=== PATIENT | male | born 1945 | race Caucasian/White ===

== ENCOUNTER 2022-08-07 12:09 | Outpatient (CLI) | payer MEDICARE, SELFPAY ==
--- NOTE | 2022-08-07 12:49 | ECG_ITS ---
Measurements Intervals [place] Rate: 72 P: 38 GA: 168 QRS: -58 QRSD: 92 T: 26 QT: 373 QTc: 410 Interpretive Statements SINUS RHYTHM LEFT ANTERIOR FASCICULAR BLOCK BASELINE ARTIFACT- I, II, III, AVR, AVL, AVF, V3, V5-V6 ABNORMAL ECG NO PREVIOUS ECG AVAILABLE FOR COMPARISON Electronically Signed On 08-07-2022 13:18:48 SOFT TOP INSTALLER by Cliff Hamilton D.O.
== END 2022-08-07 12:10 | disposition home or self-care (01) ==
LOC: ANHSURGERY 12:42
PROVIDERS: Visit Provider Otolaryngology
DX: I10 Essential (primary) hypertension (principal); I44.4 Left anterior fascicular block
CPT/HCPCS: 93005

== ENCOUNTER 2022-08-08 01:20 | Day surgery (SDC) | payer MEDICARE, SELFPAY ==
[2022-08-06 12:42] VITALS: BMI 25.1
--- NOTE | 2022-08-06 13:05 | PC.NURSE ---
Report to the Outpatient Waiting Room, entrance under the green pavilion located off [facility], at time __6:00AM on date __08/08/22 . Planned Procedure Time: __8:00AM . Time changes happen often and if your time is changed the preop area will call you the afternoon before. - You and your visitor will be asked to self-screen and do not enter if you have any COVID symptoms. - Only one visitor is requested with a max of two and NO children visitors are allowed at this time. - The patient visitor may be requested to leave or wait in car when not with patient due to distancing restrictions. - A mask is optional within the hospital at this time. Patients may have clear liquids (water, carbonated beverages, clear teas, apple juice) until 3 hours prior to surgery with a maximum of 20 ounces. - No food from midnight until time of surgery Take the following medications with a SIP of water the morning of surgery: ____NONE DO NOT STOP ANY OF YOUR OTHER PRESCRIPTION MEDICATIONS PRIOR TO SURGERY ?EXCEPT THE FOLLOWING Medications to discontinue per physician ___HOLD ALL VITAMINS/SUPPLEMENTS STARTING NOW (08/06/22) Please no make-up, nail serbian, hairspray, perfume, deodorant, or body powder the day of surgery. No jewelry (including any body piercings) or valuables the day of surgery, leave them at home. Please take a shower or bath the night before, or the morning of, surgery with an antibacterial soap. Wear comfortable, loose fitting clothing. Children are encouraged to wear pajamas. - Jewelry must be removed prior to entering the operating room. Rings and piercings that are not removed may be cut off. - The hospital will not accept responsibility for valuables. - Please leave all valuables, including medications, at home the day of surgery. If you are going home after surgery, a licensed mixer driver must drive you home. - NO public transportation without another adult if you receive anesthesia. - We recommend that an adult stay with you for 24 hours following discharge. - We also recommend that you do not drive, make important decision, drink alcoholic beverages, or take any drugs that were not prescribed by your health care provider for at least 24 hours after your discharge time. Follow any additional instructions given to you from your surgeon. If you or anyone in your household have experienced Covid symptoms in the past week, please notify your surgeon or the nurse liaison at the phone number below for possible testing. Telephone instructions given to _PATIENT___and asked if any additional questions and then verbalized understanding. Patient advised to call surgeon office or pre surgery nurse liaison [phone] if any additional questions.
--- NOTE | 2022-08-07 17:05 | PM.IMHP ---
H&P: HPI History of Present Illness Date/Time: 08/07/22 17:05 Chief Complaint: bilateral eustachian tube dysfunction bilateral retained myringotomy tubes Narrative: planned surgical procedure Review of Systems Review of Systems: All systems reviewed & are unremarkable except as noted in HPI and below PMFSH Family History Family History Father Hypertension Mother Asthma Hypertension Sibling Hypertension Cancer Social History Social History Smoking status: Never smoker Alcohol intake: never Substance use: never Substance use type: does not use Lack of Transportation: No Lack of Food: Never True Current Housing: I Have Housing Concerned About Future Housing: No Difficulty Paying Gas/Electric Bills: No Difficulty Paying for Meds: No Currently Unemployed: No Education: Associate Degree Difficulty w/ Childcare or Family Care: No Living arrangements: alone Spiritual care concerns: No Meds Home Medications and Allergies Home Medications Medication Instructions Recorded Confirmed Type losartan 50 mg tablet 50 mg PO QAM 05/29/21 08/06/22 History simvastatin 20 mg tablet 20 mg PO DAILY 05/29/21 08/06/22 History terazosin 5 mg capsule 5 mg PO DAILY 05/29/21 08/06/22 History cetirizine 10 mg capsule (Zyrtec) 10 mg PO DAILY PRN Congestion 11/25/21 08/06/22 History cholecalciferol (vitamin D3) 10 10 mcg PO DAILY 11/25/21 08/06/22 History mcg (400 unit) capsule fish oil-dha-epa 1,200 mg-144 1 cap PO DAILY 11/25/21 08/06/22 History mg-216 mg capsule folic acid 1 mg tablet 1 mg PO DAILY 11/25/21 08/06/22 History lutein 20 mg capsule 20 mg PO DAILY 11/25/21 08/06/22 History magnesium hydroxide 400 mg (170 mg 400 mg PO DAILY 11/25/21 08/06/22 History magnesium) chewable tablet zinc 50 mg tablet 50 mg PO DAILY 11/25/21 08/06/22 History coenzyme Q10 100 mg capsule 100 mg PO DAILY 08/06/22 08/06/22 History (CoQ-10) glucosamine 500 wt-qgbadntowi-dkq6 1 tablet PO DAILY 08/06/22 08/06/22 History 416.6 mg-C 20 mg-delores 0.6 mg tablet methotrexate sodium 2.5 mg tablet 10 mg PO WE 08/06/22 08/06/22 History ntzcfsha-hkul-tswlb acid 400 1 tablet PO DAILY 08/06/22 08/06/22 History mcg-lycopene 600 mcg-ginkgo 120 mg tablet tumeric 100 mg-zack 150 mg-olive 1 cap PO DAILY 08/06/22 08/06/22 History 50 mg-oreg 150 mg-caprylate capsule Allergies Allergy/AdvReac Type Severity Reaction Status Date / Time Penicillins Allergy rash Verified 08/06/22 12:34 Sulfa (Sulfonamide Allergy rash Verified 08/06/22 12:34 Antibiotics) Exam Narrative: retained tubes bilaterally Assessment and Plan Assessment and plan (1) Retained bilateral myringotomy tubes: Code(s): Z96.22 - Myringotomy tube(s) status Status: Acute Assessment and Plan: plan OR bilateral nasal endoscopy with bilateral eustachian tube balloon dilation bilateral T-tube removal and replacement. Risks were discussed including bleeding infection damage to surrounding structures failure to balloon if anatomic obstruction possible carotid injury and stroke patient voiced understanding and agreed. (2) Dysfunction of both eustachian tubes: Code(s): H69.83 - Other specified disorders of Eustachian tube, bilateral Status: Acute
[2022-08-08] VITALS (7 sets, daily range): BP systolic 135–160; BP diastolic 61–89; PULSE 76–92; RESP 12–18; TEMP 36.1–36.3; O2SAT 95–100
[2022-08-08] MEDS: LACTATED RINGERS 1,000 ML 30 ML IV CONT ×2 (06:22→08:51)
--- NOTE | 2022-08-08 07:18 | WPDHPUPDATE1 ---
History and Physical Update Update Date/Time: 08/08/22 07:18 History and Physical has been reviewed, including an updated exam of the patient. There are NO changes in the patient's condition. Risks, benefits, and alternatives have been discussed and questions answered. Patient agrees to proceed with procedure.
--- NOTE | 2022-08-08 07:43 | WPDANESEPPF ---
Anes - Initial Pre Proc Eval Procedure: Operation Date: 08/08/22 08:15 Proposed Procedures p Nasal Endoscopy - Bob Peters MD s Bilateral Myringotomy Ear Tube Removal with Bilateral Myringotomy Tube Replacement, - Bob Peters MD s Bilateral Eustachian Tube Balloon Dilation - Bob Peters MD Date/Time: 08/08/22 07:43 Surgeon: Bob Peters MD Pre Op Diagnosis: Mack Eustachian Tube Dysfunction Patient Data Age: 76 Gender: M Height: 1.83 m Weight: 83 kg Last Vital Signs Temp 36.1 C L 08/08/22 06:07 Pulse 77 08/08/22 06:07 Resp 18 08/08/22 06:07 BP 157/68 H 08/08/22 06:07 Pulse Ox 97 08/08/22 06:07 O2 Del Method Room Air 08/08/22 06:07 Allergies Allergy/AdvReac Type Severity Reaction Status Date / Time Penicillins Allergy rash Verified 08/08/22 06:16 Sulfa (Sulfonamide Allergy rash Verified 08/08/22 06:16 Antibiotics) Home Medications Medication Instructions Recorded Confirmed Type losartan 50 mg tablet 50 mg PO QAM 05/29/21 08/08/22 History simvastatin 20 mg tablet 20 mg PO DAILY 05/29/21 08/08/22 History terazosin 5 mg capsule 5 mg PO DAILY 05/29/21 08/08/22 History cetirizine 10 mg capsule (Zyrtec) 10 mg PO DAILY PRN Congestion 11/25/21 08/08/22 History cholecalciferol (vitamin D3) 10 10 mcg PO DAILY 11/25/21 08/08/22 History mcg (400 unit) capsule fish oil-dha-epa 1,200 mg-144 1 cap PO DAILY 11/25/21 08/08/22 History mg-216 mg capsule folic acid 1 mg tablet 1 mg PO DAILY 11/25/21 08/08/22 History lutein 20 mg capsule 20 mg PO DAILY 11/25/21 08/08/22 History magnesium hydroxide 400 mg (170 mg 400 mg PO DAILY 11/25/21 08/08/22 History magnesium) chewable tablet zinc 50 mg tablet 50 mg PO DAILY 11/25/21 08/08/22 History coenzyme Q10 100 mg capsule 100 mg PO DAILY 08/06/22 08/08/22 History (CoQ-10) glucosamine 500 ot-bcsvnwxnmd-bbj2 1 tablet PO DAILY 08/06/22 08/08/22 History 416.6 mg-C 20 mg-delores 0.6 mg tablet methotrexate sodium 2.5 mg tablet 10 mg PO WE 08/06/22 08/08/22 History enpomsjy-qcjp-zxtna acid 400 1 tablet PO DAILY 08/06/22 08/08/22 History mcg-lycopene 600 mcg-ginkgo 120 mg tablet tumeric 100 mg-zack 150 mg-olive 1 cap PO DAILY 08/06/22 08/08/22 History 50 mg-oreg 150 mg-caprylate capsule Patient hx anesthesia problems: none Family hx anesthesia problems: none Results Review: All pre-operative results and documents have been reviewed as part of the pre-operative evaluation. [facility] Family History Family History Father Hypertension Mother Asthma Hypertension Sibling Hypertension Cancer Social History Social History Smoking status: Never smoker Alcohol intake: never Substance use: never Substance use type: does not use Lack of Transportation: No Lack of Food: Never True Current Housing: I Have Housing Concerned About Future Housing: No Difficulty Paying Gas/Electric Bills: No Difficulty Paying for Meds: No Currently Unemployed: No Education: Associate Degree Difficulty w/ Childcare or Family Care: No Living arrangements: alone Spiritual care concerns: No Anes - Eval Final PreProcedure Day of Procedure 08/08/22 07:43 Patient weight: normal Heart: regular rate and rhythm Lungs: clear to auscultation Airway: Mallampati scale class II Neurological: alert and oriented Last oral intake: >/= 8 hours ASA classification: III Emergent: no Anesthetic plan: proceed Anesthesia type and monitoring: general LMA and standard monitoring Results Review: All pre-operative results and documents have been reviewed as part of the pre-operative evaluation. Informed Consent: The patient's anesthetic plan and its attendant risks and benefits were discussed with the patient/family/POA. Questions were solicited and answers provided to the satisfaction of the patient/family/POA.
[2022-08-08] MEDS: CIPROFLOXACIN HCL 0.3% OP SOLN 2.5 ML BTL 4 DROP EACH EAR (08:24)
[2022-08-08] MEDS: OXYMETAZOLINE HCL 0.05% NAS 15 ML BTL (*BKC) 1 SPRAY NASAL (08:26)
--- NOTE | 2022-08-08 09:13 | P.OP_ITS ---
Procedure Note - Detailed Date of Procedure 08/08/22 Pre-op Diagnosis Mack Eustachian Tube Dysfunction, right-sided otitis media, returning myringotomy tubes retained Post-op Diagnosis Same Procedure Performed bilateral tube replacement with T tubes and nasal endoscopy with bilateral eustachian tube dysfunction Surgeon Bob Peters MD Anesthesia General Indications see above Findings right-sided tube obstructed fluid left-sided tube in place no good replacement of tubes right-sided was slightly traumatic scant bleeding. Adequate Kennedy perfect dilation with eustachian tube balloons. Description of Procedure Patient identified consent verified. Patient brought operating. Time-out performed. General anesthesia induced endotracheal tube secured airway taped left lower lip. Patient prepped reposition 2nd time-out performed. Ankit microscope brought into the operative field. Right-sided view tube removed pros and was obstructive myringotomy made T-Tube placed 1 cc of bleeding drops placed cotton ball left-sided tube was in place removed frozen T-Tube placed through the hole. Drops placed cotton ball placed. 0 degree micro endoscope utilized turbinates a gently pushed to the side Afrin-soaked pledgets placed allowed to sit for 5 minutes then removed torus to bear I easily visualized bilaterally. Eustachian tube balloon dilation device Acclarent placed into the geovani/eustachian tube inflated for 2 minutes at 12 atmospheres on each side was a bilateral procedure. Patient tolerated the procedure well no obvious complications blood loss maybe 1 cc care the patient given Anesthesiology I pe rformed all dictated portions of the procedure. Estimated Blood Loss 1 Drains No Packing No Pathology None sent Complications No immediate complications Condition Stable Disposition PACU [facility] Billing Surgery - Charge Forward: Surgery Billing
== END 2022-08-08 10:23 | disposition home or self-care (01) ==
PROVIDERS: Visit Provider Otolaryngology
PROC: (CPT 69424; 2022-08-08 08:15)
PROC: (CPT 69706; 2022-08-08 08:15)
DX: H69.83 Other specified disorders of Eustachian tube, bilateral (principal); H66.91 Otitis media, unspecified, right ear; T85.698A Other mechanical complication of other specified internal prosthetic devices, implants and grafts, initial encounter; Y83.8 Other surgical procedures as the cause of abnormal reaction of the patient, or of later complication, without mention of misadventure at the time of the procedure
CPT/HCPCS: 69706; 69436; C1726; J1100; J2405; J2704; J2710; J3010; J7120

== ENCOUNTER 2023-01-07 08:51 | Outpatient (CLI) | payer MEDICARE, SELFPAY ==
--- NOTE | 2023-01-19 20:48 | WPDHOMESLEEP ---
Sleep Study - Home Unattended Date of Study: 01/07/23 Ordering Provider: Johanny Smith DO Interpreting Provider: Johanny Smith DO Home Sleep Study Type: Watch PAT Height: 1.83 m Weight: 83.915 kg Body Mass Index: 25.0 Neck Circumference (inches): 15.5 [place]: 2 Reason for Sleep Study Witnessed apneas and multiple nighttime awakenings Sleep History The patient is a 77-year-old male that had a sleep study ordered for evaluation of sleep apnea. The patient denies awakening from sleep short of breath. He denies awakening at night with heartburn, belching or cough. He occasionally snores but it is never loud enough that others complain. He denies having trouble sleeping when he has a cold. He denies waking up gasping for air throughout the night. He occasionally has breathing problems at night observed by himself or others. He denies sweating excessively at night. He denies having heart palpitations or irregular heartbeats during the night. He rarely falls asleep during the day but never while driving. He denies sleep paralysis, cataplexy and hypnagogic / hypnopompic hallucinations. He denies having trouble at school or work due to sleepiness. He denies feeling afraid of going to sleep. He denies having nightmares. He rarely remembers his dreams. He denies having thoughts racing through his mind. He denies feeling sad, depressed and anxious. He denies having muscular tension. He denies noticing parts of his body jerk. He denies kicking during the night. He rarely has crawling and aching feelings in his legs and rarely has leg pain during the night. He rarely grinds his teeth during sleep never awakens with morning jaw pain. He denies being bothered by pain during the day and denies being awakened by pain during the night. He denies waking feeling stiff morning. He denies waking up with sore or achy muscles. He frequently wakes up with pain in the neck, spine or other joints. He goes to bed at 1:30 a.m. on both weekdays and weekends. It takes him 5-10 minutes to fall asleep. He wakes up 3-4 times throughout the night for unknown reasons but he can fall back asleep within 5 minutes. He wakes up between 9-930 a.m. on both weekdays and weekends. He typically gets 7 8 hours of sleep per night. He will stay in bed for 5 minutes after waking up in the morning. He currently lives alone. He does not consume any caffeinated beverages within 2 hours of bedtime. He does not engage in physical exercise before bedtime. He will read and watch television before falling asleep. He denies taking naps in the afternoon or the evening. He drinks 1 cup of cappuccino daily. He denies tobacco, and recreational drug use [facility] Past Medical History Medical History Acute carpal tunnel syndrome Family History Family History Father Hypertension Mother Asthma Hypertension Sibling Hypertension Cancer Social History Social History Smoking status: Never smoker Alcohol intake: never Substance use: never Substance use type: does not use Lack of Transportation: No Lack of Food: Never True Current Housing: I Have Housing Concerned About Future Housing: No Difficulty Paying Gas/Electric Bills: No Difficulty Paying for Meds: No Currently Unemployed: No Education: Associate Degree Difficulty w/ Childcare or Family Care: No Living arrangements: alone Spiritual care concerns: No Medications Home Medications Medication Instructions Recorded Confirmed Type losartan 50 mg tablet 50 mg PO QAM 05/29/21 12/02/22 History simvastatin 20 mg tablet 20 mg PO DAILY 05/29/21 12/02/22 History terazosin 5 mg capsule 5 mg PO DAILY 05/29/21 12/02/22 History cetirizine 10 mg capsule (Zyrtec) 10 mg PO DAILY PRN Congestion 11/25/21 06
[2023-01-19 21:02] VITALS: BMI 25.0
== END 2023-01-13 15:31 | disposition home or self-care (01) ==
PROVIDERS: Visit Provider Family Medicine
DX: G47.9 Sleep disorder, unspecified (principal); G47.33 Obstructive sleep apnea (adult) (pediatric)
CPT/HCPCS: 95800

== ENCOUNTER 2023-03-10 08:21 | Outpatient (CLI) | payer MEDICARE, SELFPAY ==
--- NOTE | 2023-03-31 16:50 | WPDSLEEPSTUD ---
Sleep Study Date of Study: 03/10/23 Ordering Provider: Johanny Smith DO Interpreting Physician: Johanny Smith DO Sleep Study Type: CPAP Titration Height: 1.83 m Weight: 82.554 kg Body Mass Index: 24.7 Neck Circumference (inches): 15 [place]: 2 Reason for Sleep Study The patient had a WatchPAT home sleep test on 01/07/2023 that showed an overall AHI of 13.8 with desaturation down to 84%. He had a central apnea index of 5.6. He was recommended to have a PAP Titration study. Sleep History The patient is a 77-year-old male that had a sleep study ordered for evaluation of sleep apnea.? The patient denies awakening from sleep short of breath.? He denies awakening at night with heartburn, belching or cough.? He occasionally snores but it is never loud enough that others complain.? He denies having trouble sleeping when he has a cold.? He denies waking up gasping for air throughout the night.? He occasionally has breathing problems at night observed by himself or others.? He denies sweating excessively at night.? He denies having heart palpitations or irregular heartbeats during the night.? He rarely falls asleep during the day but never while driving.? He denies sleep paralysis, cataplexy and hypnagogic / hypnopompic hallucinations.? He denies having trouble at school or work due to sleepiness.? He denies feeling afraid of going to sleep.? He denies having nightmares.? He rarely remembers his dreams.? He denies having thoughts racing through his mind.? He denies feeling sad, depressed and anxious.? He denies having muscular tension.? He denies noticing parts of his body jerk.? He denies kicking during the night.? He rarely has crawling and aching feelings in his legs and rarely has leg pain during the night.? He rarely grinds his teeth during sleep never awakens with morning jaw pain.? He denies being bothered by pain during the day and denies being awakened by pain during the night.? He denies waking feeling stiff morning.? He denies waking up with sore or achy muscles.? He frequently wakes up with pain in the neck, spine or other joints.? He goes to bed at 1:30 a.m. on both weekdays and weekends.? It takes him 5-10 minutes to fall asleep.? He wakes up 3-4 times throughout the night for unknown reasons but he can fall back asleep within 5 minutes.? He wakes up between 9-930 a.m. on both weekdays and weekends.? He typically gets 7 8 hours of sleep per night.? He will stay in bed for 5 minutes after waking up in the morning.? He currently lives alone.? He does not consume any caffeinated beverages within 2 hours of bedtime.? He does not engage in physical exercise before bedtime.? He will read and watch television before falling asleep.? He denies taking naps in the afternoon or the evening.? He drinks 1 cup of cappuccino daily.? He denies tobacco, and recreational drug use. [facility] Past Medical History Medical History Acute carpal tunnel syndrome Family History Family History Father Hypertension Mother Asthma Hypertension Sibling Hypertension Cancer Social History Social History Smoking status: Never smoker Alcohol intake: never Substance use: never Substance use type: does not use Lack of Transportation: No Lack of Food: Never True Current Housing: I Have Housing Concerned About Future Housing: No Difficulty Paying Gas/Electric Bills: No Difficulty Paying for Meds: No Currently Unemployed: No Education: Associate Degree Difficulty w/ Childcare or Family Care: No Living arrangements: alone Spiritual care concerns: No Medications Home Medications Medication Instructions Recorded Confirmed Type losartan 50 mg tablet 50 mg PO QAM 05/29/21 12/02/22 History simvastatin 20 mg tablet 20 mg PO DAILY 05/29/21 12/02/22 History
[2023-03-31 16:58] VITALS: BMI 24.7
== END 2023-03-11 06:51 | disposition home or self-care (01) ==
LOC: ANHCSM 08:22
PROVIDERS: Visit Provider Family Medicine
DX: G47.33 Obstructive sleep apnea (adult) (pediatric) (principal); G47.61 Periodic limb movement disorder
CPT/HCPCS: 95811

== ENCOUNTER 2024-06-02 13:37 | Outpatient (CLI) | payer MEDICARE, SELFPAY ==
--- NOTE | ~2024-06-02 | XR_ITS ---
XR foot RT 2V Ordering provider: Trevor Banks MD History: . Rheumatoid arthritis . Comparison: None. FINDINGS: BONES: No acute fracture or dislocation. Calcaneus spur. JOINT SPACES: Normal. No tarsal coalition. SOFT TISSUES: Normal. IMPRESSION: No acute osseous abnormality of the right foot. Reviewed, dictated and finalized at location A. LIFT MULE OPERATOR
--- NOTE | ~2024-06-02 | XR_ITS ---
XR foot LT 2V Ordering provider: Trevor Banks MD History: . Rheumatoid arthritis . Comparison: none FINDINGS: BONES: No acute fracture or dislocation. Small bony fragment seen in the lateral view in the soft tissues most likely sesamoid bones. JOINT SPACES: Normal. No tarsal coalition. SOFT TISSUES: Normal. IMPRESSION: No acute osseous abnormality left foot. Reviewed, dictated and finalized at location A. ER ELECTRICAL
--- NOTE | ~2024-06-02 | XR_ITS ---
XR hand RT 2V Ordering provider: Trevor Banks MD History: . RHEUMATOID ARTHIRITS . Comparison: None. FINDINGS: BONES: No acute fracture or dislocation. JOINT SPACES: Mild periarticular osteopenia is noted with subarticular margin erosive changes which r aises the possibility of rheumatoid arthritis. Clinical correlation advised. Narrowing of the proxima l and distal interphalangeal joints is noted. SOFT TISSUES: Normal. IMPRESSION: No acute osseous abnormality right hand. Highly suggestive rheumatoid arthritis. Clinical correlation advised Reviewed, dictated and finalized at location A. L DIE ENGRAVER
--- NOTE | ~2024-06-02 | XR_ITS ---
XR hand LT 2V Ordering provider: Trevor Banks MD History: . Rheumatoid arthritis . Comparison: None. FINDINGS: BONES: No acute fracture or dislocation. JOINT SPACES: Narrowing of the proximal and distal interphalangeal joints. Mild periarticular osteope pam. Subarticular erosive changes are seen. SOFT TISSUES: Unremarkable. IMPRESSION: No acute osseous abnormality left hand. Possible rheumatoid arthritis. Other differential include erosive osteoarthritic changes. Reviewed, dictated and finalized at location A. CAL EFFECTS LINE UP PERSON IMPRESSION: No acute osseous abnormality left hand. Possible rheumatoid arthritis. Other differential include erosive osteoarthriti c changes.
== END 2024-06-02 13:38 | disposition home or self-care (01) ==
PROVIDERS: Visit Provider Internal Medicine
DX: M06.9 Rheumatoid arthritis, unspecified (principal)
CPT/HCPCS: 73120; 73620

== ENCOUNTER 2024-07-18 14:33 | Outpatient (CLI) | payer MEDICARE, SELFPAY ==
--- NOTE | ~2024-07-18 | MR_ITS ---
EXAMINATION: MR hand LT wo con, MR hand RT wo con DATE: 07/18/2024 15:39 INDICATION: Rheumatoid arthritis TECHNIQUE: 1. Magnetic resonance imaging (MRI) of the right hand was performed without intravenous contrast to i nclude the digits and distal aspect of the second-fifth metacarpals. Sequences included sagittal, cor onal, and axial T1-weighted FSE and T2-weighted FS FSE. 2. MRI of the left hand was performed without intravenous contrast to include the digits and distal a spect of the second-fifth metacarpals. Sequences included sagittal, coronal, and axial T1-weighted FS E and T2-weighted FS FSE. COMPARISON: Radiographs dated 05/2624 FINDINGS: Right hand: Bone alignment is normal. There is a low signal intensity sclerotic bone island at the head of the ri ght third metacarpal. Bone marrow signal is otherwise normal throughout with no reactive edema, fract ure or pathologic marrow replacing process. Polyarticular osteoarthritis characterized by nonuniform joint space narrowing and/or marginal osteophytes, mild at the third and fourth metacarpophalangeal j oints and second proximal interphalangeal joint, moderate severity at the remaining interphalangeal j oints and minimal at the second and fifth metacarpophalangeal joints. No cortical erosions to suggest inflammatory arthritis. No joint effusion, synovitis or tenosynovitis. Visualized portions of the fl exor and extensor tendons are normal. The collateral ligament complex at the metacarpophalangeal and interphalangeal joints are normal. Visualized portions of the intrinsic musculature of the hand are u nremarkable. Left hand: Bone alignment is normal. Bone marrow signal is otherwise normal throughout with no reactive edema, f racture or pathologic marrow replacing process. Polyarticular osteoarthritis at multiple interphalan geal joints. Moderate severity at the third and fifth distal interphalangeal and second-fifth proxima l interphalangeal joints and at the first interphalangeal joint. Additional mild osteoarthritis at th e third and fourth metacarpophalangeal and at the remaining interphalangeal joints. No cortical erosi ons to suggest inflammatory arthritis. No joint effusion, synovitis or tenosynovitis. Visualized port ions of the flexor and extensor tendons are normal. The collateral ligament complex at the metacarpop halangeal and interphalangeal joints are normal. Visualized portions of the intrinsic musculature of the hand are unremarkable. IMPRESSION: 1. 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 No erosions to suggest inflammatory arthritis such as rheumatoid. Reviewed, dictated and finalized at location A. CTOR AUTO IMPRESSION: 1. 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 No erosions to suggest inflammatory arthritis such as rheumatoid.
--- OUTSIDE RECORDS SUMMARY | 2024-07-18 14:51 | XMS_ITS | Encounter Summary ---
Author Organization [facility] Address [address] [place] [address] Phone Care Team Providers Care Store Worker Name Role Phone Yves Martinez MD Primary Care Provider Davi Villa MD Primary Care Provider Encounter Details Date Type Department Care Team (Late st Contact Info) Description 11/04/2016 Orders Only [facility] [phone] Scanning, Provider Social History Tobacco Use Types Packs/Day Years Used Date Smoking Tobacco: Never Assessed Sex and Gender Information Value Date Recorded Sex Assigned at Not on file Legal Sex 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 Gender Identity Male 05/09/2021 7:32 PM VP SOFTWARE ENGINEERING Sexual Orientation Not on file documented as of this encounter Plan of Treatment Scheduled Procedures Name Priority Associated Diagnoses Date/Ti me COLONOSCOPY Colon cancer screening documented as of this encounter Procedures Procedure Name Priority Date/Time Associated Diagnosis Comments SCAN - NEUROLOGY 11/04/2016 documented in this encounter Results * SCAN - NEUROLOGY (11/04/2016) Anatomical Region Laterality Modality Other us Provider Scanning Final Result documented in this encounter Visit Diagnoses Not on filedocumented in this encounter Care Teams Store Worker Relationship Specialty Start Date End Date Yves Martinez MD [address] [facility] [address] [address] [place] [address] PCP - General 10/03/16 03/28/21 Davi Villa MD [address] [address] PCP - General Endocrinology Diabetes & Metabolism 03/29/21 documented as of this encounter
--- OUTSIDE RECORDS SUMMARY | 2024-07-18 14:51 | XMS_ITS | Patient Health Record ---
Author Organization [facility] gerard Address [address] [address] [place] [address] Care Team Providers Care Physics Department Chair Name Role Phone Davi Villa MD Primary Care Provider Ray Evangelista Unavailable [phone] Ray Mendoza MD Unavailable Unavailabl e Allergies Allergen (clinical drug ingredient) Drug/Non Drug Allergy documented on EMR Reaction Allergy Type Onset Date Status Substance with penicillin structure and antibacterial mechanism of action (substance) Penicillins Unknown Drug Allergy 03/04/2019 Active Substance with sulfonamide structure and antibacterial mechanism of action (substance) Sulfa Antibiotics Unknown Drug Allergy 03/04/2019 Active Results Component Value Reference Range Notes CBC without Diff Reviewed date:12/22/2023 03:14:03 AM Interpretation: Performing Lab:[facility] , [address] [place] [address]. [facility] [address] Notes/Report: WBC 7.2 3.8-9.9 K/cumm Hgb 13.5 13.0-17.5 g/dL Hct 41.7 38.9-50.3 % Platelet Ct 225 150-400 K/cumm MPV 10.4 9.1-12.3 fL RBC 4.38 4.30-5.80 M/cumm MCV 95.2 81.3-96.4 fL MCH 30.8 27.1-33.3 pg MCHC 32.4 32.3-35.7 g/dL RDW CV 14.5 11.1-14.9 % RDW SD 50.0 35.7-48.1 fL NRBC Abs Auto 0.00 0.00-0.01 K/cumm Creatinine Reviewed date:12/22/2023 03:10:25 AM Interpretation: Performing Lab:[facility] , [address] [facility] [place] [address] Notes/Report: Creatinine 0.89 0.80-1.30 mg/dL Hep Func Panel Reviewed date:12/22/2023 03:10:06 AM Interpretation: Performing Lab:[facility] , [facility] [facility] [address] Notes/Report: Total Bilirubin 0.3 0.1-1.2 mg/dL Bilirubin, Direct <0.2 0.1-0.3 mg/dL Plasma Total Protein 6.6 6.5-8.5 g/dL Albumin 4.3 3.5-5.0 g/dL Alkaline Phosphatase 74 40-130 Units/L ALT 18 7-55 Units/L AST 20 10-50 Units/L eGFR Reviewed date:12/22/2023 03:14:38 AM Interpretation: Performing Lab:[facility] , [address] [place] [address] [facility] [address] Notes/Report: eGFR 87 >=60 mL/min/1.73 m2 Interpretive Data Reference Interval Normal >/= 90 mL/min/1.73m2 Mildly decreased* 60 - 89 mL/min/1.73m2 Mildly to moderately decreased 45 - 59 mL/min/1.73m2 Moderately to severely decreased 30 - 44 mL/min/1.73m2 Severely decreased 15 - 29 mL/min/1.73m2 Kidney Failure < 15 mL/min/1.73m2 *Relative to young adult level Estimated glomerular filtration rate is determined by the 2020 CKD-EPI equation recommended by the National Kidney Foundation (A Unifying Approach to GFR Estimation: Recommendations of the NKF-ASK Task Force on Reassessing the Inclusion of Race in Diagnosing Kidney Disease, JASN 202). The CKD-EPI equation should not be used for patients with unstable renal function and has not been validated in children and those over 70. Current interpretive data was last reviewed 2021. Reason For Referral No Information Medications Medication SIG (Take, Route, Frequency, Duration) Notes Start Date End Date Status Cetirizine HCl 10 MG take 1 tablet (10 mg) by oral route once daily Oral 1 Active Vitamin B2 *Reorder from [employer] for eRx and Interaction Alerts* Active Methotrexate Sodium 2.5 MG TAKE 4 TABLETS BY MOUTH 1 TIME EVERY WEEK Oral 03/08/2023 Active Fish Oil 1000 MG Oral Act walker Folic Acid 1 MG TAKE 1 TABLET BY MOUTH ONCE DAILY for 90 Active Vit E/ B6/A/B12 all separate pills one of each daily *Reorder from [email or web address] for eRx and Interaction Alerts* Active Losartan Potassium 50 MG take 1 tablet (50 mg) by oral route once daily Oral 1 Active Calcium + Vitamin D3 600-5 MG-MCG daily Oral Active Terazosin HCl 5 MG take 1 capsule (5 mg) by oral route once daily at bedtime Oral 1 Active Vitamin C 100 MG Oral Act walker Lutein-Zeaxanthin 25-5 mg take 1 capsule by oral route daily Oral 1 Active Simvastatin 20 MG take 1 tablet (20 mg) by oral route once daily in the evening Oral 1 Active Potassium Citrate oral *Pick strength -form from [email or web address] for eRX* Active Vitamin B-12 sublingual *Pick strength-f orm [facility] for [facility]* Active Turmeric 400 mg take 1 capsule by oral route daily oral 1 Active Magnesium 200 MG take 2 tablets by oral route daily Oral 1 Active Problems Problem Type SNOMED Code ICD Code Onset Dates Problem Status W/U Status Risk Notes Problem 430906946 Other specified rheumatoid arthritis, 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) Active confirmed Problem Long-term current use of drug therapy (802638596) Other mcc (current) drug therapy (Z79.899) Active confirmed Problem Joint pain (22804319) Pain in unspecified joint (M25.50) Active confirmed Vital Signs Heart Rate 75 /min 12/21/2023 Temperature 97.1 degrees Fahrenheit 08/20/2023 Height-cm 182.88 cm 08/20/2023 Oximetry 94 % 12/21/2023 Blood pressure diastolic 72 mm Hg 12/21/2023 Weight-kg 82.19 kg 08/20/2023 Height 72 in 12/21/2023 Blood pressure systolic 130 mm Hg 12/21/2023 Weight 183 lbs 12/21/2023 BMI 24.82 kg/m2 12/21/2023 Encounters Encounter Location Date Provider Diagnosis [facility] [address] [facility] [address] [place] [address] 08/20/2023 Ray DiValerio Pain in unspecified joint M25.50 ; Other specified rheumatoid arthritis, multiple sites M06.89 and Other terminal operator (current) drug therapy Z79.899 [facility] [address] [place] [address] 12/21/2023 Ray DiValerio Pain in unspecified joint M25.50 ; Other specified rheumatoid arthritis, multiple sites M06.89 and Other mcc (current) drug therapy Z79.899 Assessments Encounter Date Diagnosis (ICD Code) Assessment Notes Treatment Notes Treatment Clinical Notes Section Notes 08/20/2023 Other specified rheumatoid arthritis, multiple sites (ICD-10 - M06.89) 08/20/2023 Pain in unspecified joint (ICD-10 - M25.50) 12/21/2023 Other specified rheumatoid arthritis, multiple sites (ICD-10 - M06.89) 12/21/2023 Pain in unspecified joint (ICD-10 - M25.50) 12/21/2023 Other mcc (current) drug therapy (ICD-10 - Z79.899) 08/20/2023 Other mcc (current) drug therapy (ICD-10 - Z79.899) Plan Of Treatment Pending Test Test Name Order Date CBC With Differential/Platelet 3 CBC With Differential/Platelet 4 Hepatic Function Panel (7) 08/20/2023 Hepatic Function Panel (7) 04/21/2023 Creatinine 04/21/2023 Creatinine 08/20/2023 Insurance Providers Payer Name Payer Address Payer Phone Subscriber Number Group Number Insured Name Patient Relationship to Insured Coverage Start Date Coverage End Date Medicare [address] [address] [place] [address] [id number] Bebeto Yves Self - patient is the insured Av Medicare Supplement [address] [address] [place], [place] [phone] [id number] Yves Tate Self - patient is the insured Medical (General) History Surgical History Surgery Date(Month/Year) carpal tunnel surgery; 2019-03-04 Bladder Surgery; 2019-03-04
--- OUTSIDE RECORDS SUMMARY | 2024-07-18 14:51 | XMS_ITS | Clinical Summary ---
Author Organization [facility] Address [address] [place] [address] Care Team Providers Care Capacity Planner Name Role Phone Davi Villa MD Primary Care Provider Allergies Active Allergy Reactions Criticality Noted Date Comments Penicillins Rash Medium Sulfa (Sulfonamide Antibiotics) Rash Medium Medications turmeric root extract 500 mg capsule Take 500 mg by mouth every morning. Active omega-3 fatty acids-fish oil 300-1,000 mg capsule Take 1 capsule (1 g total) by mouth every morning Active magnesium oxide (MAG-OX) 400 mg (241.3 mg elemental magnesium) tabletIndicati ons:hypomagnes emia Take 1 tablet (400 mg total) by mouth every morning Active glucosamine-ch ondroitin 500-400 mg tablet Take 1 tablet by mouth every morning Active lutein-zeaxant hin 25-5 mg capsule Take 1 capsule by mouth every morning. Active cyanocobalamin (Vitamin B-12) 1,000 mcg tabletIndicati ons:Prevention of Vitamin B12 Deficiency Take 1 tablet (1,000 mcg total) by mouth every morning Active folic acid (FOLVITE) 1 mg tablet TK 1 T PO ONCE D 6 04/21/20 19 Active cetirizine 10 mg capsule Take by mouth Activ e [id number]-sen na 165 mg iron-600 mg-2 mg tablet Take by mouth Active potassium 99 mg tablet Take by mouth Active [id number]-[id number]-[id number] yjt-wlm-xidc-b or 600 mg calcium- 800 unit-50 mg tablet Take by mouth Active magnesium citrate solution Take 296 ml by mouth as directed for 2 doses per prep instructions 592 mL 05/27/20 21 Active benzonatate (TESSALON) 100 mg capsuleIndicat ions:Cough Take 1 capsule (100 mg total) by mouth 3 (three) times a day as needed for cough 30 capsule 06/22/19 24 Active simvastatin (ZOCOR) 20 mg tablet TAKE 1 TABLET BY MOUTH DAILY 90 tablet 3 07/31/19 24 Active losartan (COZAAR) 50 mg tablet TAKE 1 TABLET BY MOUTH IN THE MORNING 90 tablet 3 02/04/20 24 Active terazosin (HYTRIN) 5 mg capsule TAKE 1 CAPSULE BY MOUTH DAILY 90 capsule 1 03/29/20 24 Active hydroxychloroq uine (PLAQUENIL) 200 mg tablet Take 1 tablet (200 mg total) by mouth daily Active finasteride (PROSCAR) 5 mg tablet Take 1 tablet (5 mg total) by mouth daily 90 tablet 3 07/04/19 25 026 Active methotrexate 2.5 mg tablet TK 4 TS PO ONCE Q WK 5 04/26/20 19 025 Discontinued Hospital, Clinic, or Other Facility Administered Medication Ordered Dose Route Frequency Start Date End Date Status perflutren protein-a (OPTISON) 3 mL in sodium chloride 0.9% 8 mL syringe 1 - 8 mL IV Once in imaging 02/05/2023 Active Active Problems Problem Noted Date Diagnosed Date Hyperglycemia 08/26/2023 Assessment & Plan (07/04/2024 1:51 PM DATASTAGE CONSULTANT): A1c normal today. Assessment & Plan (08/26/2023 1:02 PM CDT): A1c 5.7% today, which is stable. Sleep apnea 02/25/2023 Assessment & Plan (02/25/2023 12:39 PM CDT): Has in-lab sleep study planned. Rheumatoid arthritis involving multiple sites (C MS/HCC) 05/15/2021 Assessment & Plan (07/04/2024 3:52 PM DATASTAGE CONSULTANT): Now on HCQ per new patent lawyer. Assessment & Plan (02/25/2023 12:38 PM CDT): Per rheumatology. Assessment & Plan (08/20/2022 12:48 PM CDT): Per rheumatology. Assessment & Plan (03/19/2022 2:20 PM CDT): Refer to [facility] rheumatology. Assessment & Plan (05/15/2021 1:31 PM DATASTAGE CONSULTANT): Per rheumatology. Continue MTX. Hyperlipidemia 05/15/2021 Assessment & Plan (07/04/2024 1:51 PM DATASTAGE CONSULTANT): Due for lipid check. Continue statin. Assessment & Plan (08/26/2023 11:51 AM CDT): At goal on current therapy. Assessment & Plan (02/25/2023 12:38 PM CDT): Check LDL. Continue statin. Assessment & Plan (08/20/2022 12:48 PM CDT): At goal on current therapy. Assessment & Plan (03/19/2022 2:19 PM CDT): At goal on current therapy. Assessment & Plan (10/16/2021 12:29 PM CDT): At goal on current therapy. Assessment & Plan (05/15/2021 1:31 PM DATASTAGE CONSULTANT): At goal on current therapy. Essential hypertension, benign 05/15/2021 Assessment & Plan (07/04/2024 3:51 PM DATASTAGE CONSULTANT): BP improved on recheck. Continue current regimen. Assessment & Plan (08/26/2023 11:51 AM CDT): At goal on current therapy. Assessment & Plan (02/25/2023 12:38 PM CDT): At goal on current therapy. Caution when standing to avoid orthostasis. Assessment & Plan (08/20/2022 12:48 PM CDT): At goal on current therapy. Assessment & Plan (03/19/2022 2:19 PM CDT): At goal on current therapy. Assessment & Plan (10/16/2021 12:29 PM CDT): At goal on current therapy. Assessment & Plan (05/15/2021 1:31 PM DATASTAGE CONSULTANT): At goal on current therapy. Colon cancer screening 04/01/2021 Assessment & Plan (04/01/2021 1:08 PM CDT): Colonoscopy referral today, last 2018 due in 2019 Abdominal pain 04/01/2021 Assessment & Plan (05/15/2021 1:31 PM DATASTAGE CONSULTANT): Trial simethicone. He is waiting for his colonoscopy and EGD to be scheduled. Assessment & Plan (04/01/2021 1:08 PM CDT): Seems to have resolved If symptoms return would consider abdominal US Mixed hearing loss, bilateral 11/30/2019 Carpal tunnel syndrome on left 02/09/2019 Overview (02/09/2019): Added automatically from request for surgery [id number] Peripheral vertigo 10/14/2018 Assessment & Plan (10/14/2018 12:58 PM CDT): Given he had only one episode of vertigo, would observe. If symptoms worsen, consider vestibular testing. 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 Do not recommend surgery at this time. Continue to monitor. Patient to call if problems with activities of daily living. Brochure offered/given. 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 Call if any worsened sx. Posterior vitreous detachment of right eye 02/20 History of repair of retinal tear by laser photo coagulation 10/28/2015 Deafness, mixed type 09/12/2014 Sensorineural hearing loss, unilateral with unrestricted hearing on the contralateral side 09/12/2014 Sensorineural hearing loss (SNHL) 08/30/2013 Mass of salivary gland 07/25/2013 Lymphadenopathy 07/11/2013 Chronic serous otitis media 10/11/2010 Presbycusis 10/11/2010 Benign prostatic hyperplasia 03/07/2009 Assessment & Plan (07/04/2024 3:51 PM DATASTAGE CONSULTANT): LUTS still present. Add finasteride. Continue alpha arnulfo. Resolved Problems Problem Noted Date Diagnosed Date Resolved Date Pain of hand 10/14/2016 04/01/2021 Vitreous hemorrhage 02/21/2016 03/15/20 18 Pain in pelvis 04/26/2013 04/01/2021 Encounters Date Type Department Care Team Description 07/04/2024 1:45 PM DATASTAGE CONSULTANT Office Visit [facility] [address] [place] [address] [address] [place] [address] Davi Villa MD Hyperglycemia (Primary Dx); Essential hypertension, benign; Hyperlipidemia, unspecified hyperlipidemia type; Rheumatoid arthritis involving multiple sites, unspecified whether rheumatoid factor present (HCC); Benign prostatic hyperplasia with weak urinary stream from Last 3 Months Surgical History Surgery Date Site/Laterality Comments MARICRUZ NEWTON NEEDLE ASPIRATION W IMAGE GUIDANCE 07/27/2013 N/A TONSILLECTOMY as a child CARDIAC CATHETERIZATION 06/08/1994 - 06/07/1995 CARPAL TUNNEL RELEASE 06/08/2018 - 06/07/2019 Bilateral TRANSURETHRAL RESECTION OF PROSTATE 06/08/1997 - 06/07/1998 COLONOSCOPY Medical History Medical History Date Comments Chronic sinusitis Recurrent sinu s infections - (Added by TW Conv) HL (hearing loss) Hypertension Hyperlipidemia Seasonal allergies History of colon polyps Colon polyp Hyperlipidemia 05/15/2021 Family History Medical History Relation Name Comments Cancer Brother Family history of malignant neoplasm - (Added by TW Conv) Migraines Mother Cancer Sister Family history of malignant neoplasm - (Added by TW Conv) Migraines Sister Anesthesia problems Neg Hx Heart disease Neg Hx Relation Name Status Comments Brother Mother Sister Social History Tobacco Use Types Packs/Day Years Used Date Smoking Tobacco: Never Smokeless Tobacco: Never Tobacco Cessation:Counseling Given: Not Answered Alcohol Use Standard Drinks/Week Comments No 0 (1 standard drink = 0.6 oz pur e alcohol) AUDIT-C Answer Date Recorded Q1: How often do you have a drink containing alc ohol? Never 07/23/2021 Average Number of Drinks Not on file 022 Q3: How often do you have si x or more drinks on one occasion? Never 07/23/2021 PHQ-2 Answer Date Recorded PHQ-2 Total Score (If total score is 3 or more points, staff should administer the PHQ-9) 0 09/03/2020 Sex and Gender Information Value Date Recorded Sex Assigned at Not on file Legal Sex Male 7:50 PM DATASTAGE CONSULTANT Gender Identity Male 05/09/2021 7:32 PM DATASTAGE CONSULTANT Sexual Orientation Not on file Occupation Industry Job Start Date Job End Date retired Not on file Not on file Not on file Obstetrics History Last Filed Vital Signs Vital Sign Reading Time Taken Comments Blood Pressure 177/71 07/04/2024 1:32 PM DATASTAGE CONSULTANT Pulse 81 07/04/2024 1:32 PM DATASTAGE CONSULTANT Temperature 36.3 C (97.3 F) 07/23/2021 1:45 PM DATASTAGE CONSULTANT Respiratory Rate 22 07/23/2021 2:05 PM DATASTAGE CONSULTANT Oxygen Saturation 94% 07/23/2021 2:05 PM DATASTAGE CONSULTANT Inhaled Oxygen Concentration - - Weight 83.1 kg (183 lb 3.2 oz) 07/04/2024 1:32 P M DATASTAGE CONSULTANT Height 182.9 cm (6') 07/04/2024 1:32 PM DATASTAGE CONSULTANT Body Mass Index 24.85 07/04/2024 1:32 PM DATASTAGE CONSULTANT Plan of Treatment Scheduled Procedures Name Priority Associated Diagnoses Date/Ti me COLONOSCOPY Colon cancer screening Health Maintenance Due Date Last Done Comments Pneumococcal vaccine 65+ (1 of 2 - PCV) 12/16/1951 DTaP/Tdap/Td Vaccine (1 - Tdap) 12/16/1954 Hepatitis B Screening 12/16/1961 Zoster Vaccine (1 of 2) 12/16/1962 Covid-19 Vaccine (3 - Moderna risk series) 09/12/2020 08/15/2020, 07/18/2020 Depression Screening 09/03/2021 09/03/2020 Well Visit 65+ 09/03/2021 09/03/2020 Fall Risk Assessment 07/23/2022 07/23/2021, 09/04/19 Influenza Vaccine Completed 03/28/2024, 03/25/2017 Procedures Procedure Name Priority Date/Time Associated Diagnosis Comments LIPID PANEL Routine 07/15/2024 11:27 AM DATASTAGE CONSULTANT Hyperlipidemia, unspecified hyperlipidemia type POCT HEMOGLOBIN A1C Routine 07/04/2024 3 :52 PM DATASTAGE CONSULTANT Hyperglycemia from Last 3 Months Results * Lipid panel (07/15/2024 11:27 AM DATASTAGE CONSULTANT) Cholesterol 137 100 - 199 mg/dL [facility] - 01 Triglycerides 68 0 - 149 mg/dL [facility] - 01 HDL Cholesterol 58 >39 mg/dL [facility] - 01 VLDL 14 5 - 40 mg/dL [facility] - 01 LDL, calculated 65 0 - 99 mg/dL [facility] - 01 Blood 07/15/2024 11:2 7 AM DATASTAGE CONSULTANT 07/15/2024 Narrative [facility] - 07/16/2024 9:10 AM DATASTAGE CONSULTANT Performed at: [facility] [id number] [employer]i U[employer] Engineer: Salomon Cuba PhD, Phone: [phone] Davi Villa MD LAB BLOOD ORDERABLES Fi nal Result [facility] - 01 * POCT hemoglobin A1c (07/04/2024 3:52 PM DATASTAGE CONSULTANT) Hemoglobin A1C, POC 5.5 4.0 - 5.6 % Capillary blood 07/04/2024 3 :52 PM DATASTAGE CONSULTANT Davi Villa MD POINT OF CARE TEST ELMER GARCIA Final Result from Last 3 Months Insurance MEDICARE COMMERCIAL GENERIC MEDICARE [facility] MEDICARE MEDICARE [facility] MEDICARE MEDICARE [facility] Advance Directives For more information, please contact: [phone] * Full Code (Latest Code Status on File) Date Activated Date Inactivated Comments 07/23/2021 11:58 AM 07/23/2021 6:18 PM * Full Code Date Activated Date Inactivated Comments 05/30/2019 10:40 AM 05/30/2019 5:27 PM Care Teams Capacity Planner Relationship Specialty Start Date End Date Davi Villa MD [address] [address] PCP - General Endocrinology Diabetes & Metabolism 03/29/21
--- OUTSIDE RECORDS SUMMARY | 2024-07-18 14:51 | XMS_ITS | Referral Summary ---
Author Organization [facility] Address [address] [place] [address] Care Team Providers Care Magento Web Developer Name Role Phone Davi Villa MD Primary Care Provider Encounters Date Type Department Care Team Description 07/04/2024 1:45 PM NAIL ASSEMBLY MACHINE OPERATOR Office Visit [facility] [address] [place] [address] Davi Villa MD Hyperglycemia (Primary Dx); Essential hypertension, benign; Hyperlipidemia, unspecified hyperlipidemia type; Rheumatoid arthritis involving multiple sites, unspecified whether rheumatoid factor present (HCC); Benign prostatic hyperplasia with weak urinary stream from Last 3 Months Allergies Active Allergy Reactions Criticality Noted Date [...] mg capsule Take by mouth Activ e [id number]- [id number]-IF-sen na 165 mg iron-600 mg-2 mg tablet Take by mouth Active potassium 99 mg tablet Take by mouth Active [id number] rfh-awb-lzxr-b or 600 mg calcium- 800 unit-50 mg [...] 08/26/2023 Assessment & Plan (07/04/2024 1:51 PM NAIL ASSEMBLY MACHINE OPERATOR): A1c normal today. Assessment & Plan (08/26/2023 1:02 PM CDT): A1c 5.7% today, which is stable. Sleep apnea 02/25/2023 Assessment & Plan (02/25/2023 12:39 PM CDT): Has in-lab sleep study planned. Rheumatoid arthritis involving multiple sites (C MS/HCC) 05/15/2021 Assessment & Plan (07/04/2024 3:52 PM NAIL ASSEMBLY MACHINE OPERATOR): Now on HCQ per new manager industrial. Assessment & Plan (02/25/2023 12:38 PM CDT): Per rheumatology. Assessment & Plan (08/20/2022 12:48 PM CDT): Per rheumatology. Assessment & Plan (03/19/2022 2:20 PM CDT): Refer to [facility] rheumatology. Assessment & Plan (05/15/2021 1:31 PM NAIL ASSEMBLY MACHINE OPERATOR): Per rheumatology. Continue MTX. Hyperlipidemia 05/15/2021 Assessment & Plan (07/04/2024 1:51 PM NAIL ASSEMBLY MACHINE OPERATOR): Due for lipid check. Continue statin. Assessment [...] therapy. Assessment & Plan (05/15/2021 1:31 PM NAIL ASSEMBLY MACHINE OPERATOR): At goal on current therapy. Essential hypertension, benign 05/15/2021 Assessment & Plan (07/04/2024 3:51 PM NAIL ASSEMBLY MACHINE OPERATOR): BP improved on recheck. Continue current regimen. [...] therapy. Assessment & Plan (05/15/2021 1:31 PM NAIL ASSEMBLY MACHINE OPERATOR): At goal on current therapy. Colon cancer screening 04/01/2021 Assessment & Plan (04/01/2021 1:08 PM CDT): Colonoscopy referral today, last 2018 due in 2019 Abdominal pain 04/01/2021 Assessment & Plan (05/15/2021 1:31 PM NAIL ASSEMBLY MACHINE OPERATOR): Trial simethicone. He is waiting for his colonoscopy and EGD to be scheduled. Assessment & Plan (04/01/2021 1:08 PM CDT): Seems to have resolved If symptoms return would consider abdominal US Mixed hearing loss, bilateral 11/30/2019 Carpal tunnel syndrome on left 02/09/2019 Overview (02/09/2019): Added automatically from request for surgery [id number] Peripheral vertigo 10/14/2018 Assessment & Plan (10/14/2018 12:58 PM CDT): Given he had only one episode of vertigo, would observe. If symptoms worsen, consider vestibular testing. 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 Add finasteride. Continue alpha arnulfo. Resolved Problems Problem Noted Date Diagnosed Date Resolved Date Pain of hand 10/14/2016 04/01/2021 Vitreous hemorrhage 02/21/2016 03/15/20 Pain in pelvis 04/26/2013 04/01/2021 Social History Tobacco Use Types Packs/Day Years [...] on file Legal Sex Male 7:50 PM NAIL ASSEMBLY MACHINE OPERATOR Gender Identity Male 05/09/2021 7:32 PM NAIL ASSEMBLY MACHINE OPERATOR Sexual Orientation Not on file Occupation Industry Job Start Date Job End Date retired Not on file Not on file Not on file Last Filed Vital Signs Vital Sign Reading Time Taken Comments Blood Pressure 177/71 07/04/2024 1:32 PM NAIL ASSEMBLY MACHINE OPERATOR Pulse 81 07/04/2024 1:32 PM NAIL ASSEMBLY MACHINE OPERATOR Temperature 36.3 C (97.3 F) 07/23/2021 1:45 PM NAIL ASSEMBLY MACHINE OPERATOR Respiratory Rate 22 07/23/2021 2:05 PM NAIL ASSEMBLY MACHINE OPERATOR Oxygen Saturation 94% 07/23/2021 2:05 PM NAIL ASSEMBLY MACHINE OPERATOR Inhaled Oxygen Concentration - - Weight 83.1 kg (183 lb 3.2 oz) 07/04/2024 1:32 P M NAIL ASSEMBLY MACHINE OPERATOR Height 182.9 cm (6') 07/04/2024 1:32 PM NAIL ASSEMBLY MACHINE OPERATOR Body Mass Index 24.85 07/04/2024 1:32 PM NAIL ASSEMBLY MACHINE OPERATOR Plan of Treatment Scheduled Procedures Name Priority Associated Diagnoses Date/Ti me COLONOSCOPY Colon cancer screening Procedures Procedure Name Priority Date/Time Associated Diagnosis Comments LIPID PANEL Routine 07/15/2024 11:27 AM NAIL ASSEMBLY MACHINE OPERATOR Hyperlipidemia, unspecified hyperlipidemia type POCT HEMOGLOBIN A1C Routine 07/04/2024 3 :52 PM NAIL ASSEMBLY MACHINE OPERATOR Hyperglycemia from Last 3 Months Results * Lipid panel (07/15/2024 11:27 AM NAIL ASSEMBLY MACHINE OPERATOR) Cholesterol 137 100 - 199 mg/dL [facility] - 01 Triglycerides 68 0 - 149 mg/dL [facility] - 01 HDL Cholesterol 58 >39 mg/dL [facility] - 01 VLDL 14 5 - 40 mg/dL [facility] - 01 LDL, calculated 65 0 - 99 mg/dL [facility] - 01 Blood 07/15/2024 11:2 7 AM NAIL ASSEMBLY MACHINE OPERATOR 07/15/2024 Narrative [facility] - 07/16/2024 9:10 AM NAIL ASSEMBLY MACHINE OPERATOR Performed at: [facility] [address] [id number] X Ray Inspector: Salomon Cuba PhD, Phone: [phone] us Davi Villa MD LAB BLOOD ORDERABLES Fi nal Result [facility] - 01 * POCT hemoglobin A1c (07/04/2024 3:52 PM NAIL ASSEMBLY MACHINE OPERATOR) Hemoglobin A1C, POC 5.5 4.0 - 5.6 % Capillary blood 07/04/2024 3 :52 PM NAIL ASSEMBLY MACHINE OPERATOR us Davi Villa MD POINT OF CARE TEST ELMER GARCIA Final Result from Last 3 Months Insurance MEDICARE COMMERCIAL GENERIC MEDICARE [facility] MEDICARE MEDICARE [facility] MEDICARE MEDICARE [facility] Advance Directives For more information, please contact: [phone] * Full Code (Latest Code Status on File) Date Activated Date Inactivated Comments 07/23/2021 11:58 AM 07/23/2021 6:18 PM * Full Code Date Activated Date Inactivated Comments 05/30/2019 10:40 AM 05/30/2019 5:27 PM Care Teams Magento Web Developer Relationship Specialty Start Date End Date Davi Villa MD [address] [address] PCP - General Endocrinology Diabetes & Metabolism 03/29/21
--- OUTSIDE RECORDS SUMMARY | 2024-07-18 14:51 | XMS_ITS | Encounter Summary ---
Author Organization [facility] [employer] [facility] Address [address] [place] [address] Phone Care Team Providers Care Regulatory Agency Director Name Role Phone Yves Martinez MD Primary Care Provider [phone] Davi Villa MD Primary Care Provider Encounter Details Date Type Department Care Team (Late st Contact Info) Description 10/12/2018 Orders Only [facility] [phone] Scanning, Provider Social History Tobacco Use Types Packs/Day Years Used Date Smoking Tobacco: Never Smokeless Tobacco: Never Alcohol Use Standard Drinks/Week Comments No 0 (1 standard drink = 0.6 oz pur e alcohol) Sex and Gender Information Value Date Recorded Sex Assigned at Not on file Legal Sex Male 7:50 PM DYNO TECHNICIAN Gender Identity Male 05/09/2021 7:32 PM DYNO TECHNICIAN Sexual Orientation Not on file Occupation Industry Job Start Date Job End Date retired Not on file Not on file Not on file documented as of this encounter Plan of Treatment Scheduled Procedures Name Priority Associated Diagnoses Date/Ti me COLONOSCOPY Colon cancer screening documented as of this encounter Procedures Procedure Name Priority Date/Time Associated Diagnosis Comments SCAN - RADIOLOGY/IMAGING 10/12/2018 documented in this encounter Results * SCAN - RADIOLOGY/IMAGING (10/12/2018) Anatomical Region Laterality Modality Other us Provider Scanning Final Result documented in this encounter Visit Diagnoses Not on filedocumented in this encounter Care Teams Regulatory Agency Director Relationship Specialty Start Date End Date Yves Martinez MD [address] [address] PCP - General 10/03/16 03/28/21 Davi Villa MD [address] [address] PCP - General Endocrinology Diabetes & Metabolism 03/29/21 documented as of this encounter
--- OUTSIDE RECORDS SUMMARY | 2024-07-18 14:51 | XMS_ITS | Continuity of Care Document ---
Author Organization Located within [facility] Address [address] [place] [address] Phone Care Team Providers Care Linen Clerk Name Role Phone Rodrick Mustafa Unavailable Unavailable Advance Directives Directive Yes / No Effective Date File Name No Information Encounters Encounter Description Practice Location Reason(s) For Visit Diagnoses Date Provider Providers Copied on Encounter Merged with [facility], [address], [place], [place], [id number], [place] tel:[phone] [facility] [place] No Information [address] [facility] [address] [facility] [address] , [address], [place], [address], [place]. tel:[phone] Family History Family Member Type Diagnosis Age At Onset No Information Payers Payer name Insurance type Covered constitution party ID Authoriza tion(s) No Information Social History Type Description Quantity Date Captured Comments Sex Male Smoking Status No Information Chief Complaint And Reason For Visit No Information Reason For Referral Reason For Referral No Information History Of Present Illness Encounter Date Complaint History Of Prese nt Illness No Information Functional Status Date Functional Assessmen t No Information Instructions Date Instruction Additional Infor mation No Information Assessments Type Assessment Date No Information Patient Care Teams Name Effective Dates (start - stop) Status Members No Information
--- OUTSIDE RECORDS SUMMARY | 2024-07-18 14:51 | XMS_ITS ---
Author Organization [facility] Address [address] [place] [address] Care Team Providers Care Draw In Hand Name Role Phone Daisy ROUSE, Davi Primary Care Provider Ray Evangelista Unavailable [phone] Ray Camacho MD Unavailable Unavailabl e Allergies Allergen (clinical drug ingredient) Drug/Non Drug Allergy documented on EMR Reaction Allergy Type Onset Date Status Substance with penicillin structure and antibacterial mechanism of action (substance) Penicillins Unknown Drug Allergy 03/04/2019 Active Substance with sulfonamide structure and antibacterial mechanism of action (substance) Sulfa Antibiotics Unknown Drug Allergy 03/04/2019 Active REASON FOR VISIT f/u Medications Medication SIG (Take, Route, Frequency, Duration) Notes Start Date End Date Status Turmeric 400 mg take 1 capsule by oral route daily oral 1 Active Lutein-Zeaxanthin 25-5 mg take 1 capsule by oral route daily Oral 1 Active Methotrexate Sodium 2.5 MG TAKE 4 TABLETS BY MOUTH 1 TIME EVERY WEEK Oral 03/08/2023 Active Potassium Citrate oral *Pick strength -form from [employer] for eRX* Active Calcium + Vitamin D3 600-5 MG-MCG daily Oral Active Magnesium 200 MG take 2 tablets by oral route daily Oral 1 Active Vitamin B-12 sublingual *Pick strength-f orm from [employer] for eRX* Active Terazosin HCl 5 MG take 1 capsule (5 mg) by oral route once daily at bedtime Oral 1 Active Cetirizine HCl 10 MG take 1 tablet (10 mg) by oral route once daily Oral 1 Active Folic Acid 1 MG TAKE 1 TABLET BY MOUTH ONCE DAILY Oral 01/05/2023 Active Vit E/ B6/A/B12 all separate pills one of each daily *Reorder from [employer] for eRx and Interaction Alerts* Active Vitamin B2 [facility] and Interaction Alert[facility]* Active Losartan Potassium 50 MG take 1 tablet (50 mg) by oral route once daily Oral 1 Active Simvastatin 20 MG take 1 tablet (20 mg) by oral route once daily in the evening Oral 1 Active Fish Oil 1000 MG Oral Act walker Vitamin C 100 MG Oral Act walker Problems Problem Type SNOMED Code ICD Code Onset Dates Problem Status W/U Status Risk Notes Problem [id number] Other specified rheumatoid arthritis, 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) Active confirmed Vital Signs Temperature 97.1 degrees Fahrenheit 08/20/19 24 Blood pressure systolic 132 mm Hg 08/20/19 24 Blood pressure diastolic 78 mm Hg 024 Heart Rate 70 /min 08/20/2023 Height 72 in 08/20/2023 Weight 181.2 lbs 08/20/2023 BMI 24.57 kg/m2 08/20/2023 Oximetry 96 % 08/20/2023 Height-cm 182.88 cm 08/20/2023 Weight-kg 82.19 kg 08/20/2023 Encounters Encounter Location Date Provider Diagnosis [facility] [address] [place] [address] 08/20/2023 Ray Camacho Pain in unspecified joint M25.50 ; Other specified rheumatoid arthritis, multiple sites M06.89 and Other correction (current) drug therapy Z79.899 Assessments Encounter Date Diagnosis (ICD Code) Assessment Notes Treatment Notes Treatment Clinical Notes Section Notes 08/20/2023 Pain in unspecified joint (ICD-10 - M25.50) 08/20/2023 Other specified rheumatoid arthritis, multiple sites (ICD-10 - M06.89) 08/20/2023 Other travel ot (current) drug therapy (ICD-10 - Z79.899) Plan Of Treatment Pending Test Test Name Order Date CBC With Differential/Platelet Hepatic Function Panel (7) 08/20/2023 Creatinine 08/20/2023 Next Appt Details Follow Up: 3 Months, Reason: Progress Notes * Dea TATE:1945 ( 77 yo M)Acc No.[id number]:08/20/2023 Progress Notes Patient: L ANE, Yves Provider: Etienne Camacho MD :1945 A ge:77 Y S ex:Male Date:08/20/2023 Address:[address] [place] [address] Subjective: * Chief Complaints: * F /u * HPI: A dvance Care Planning: No acute joint swelling. No significant AM stiffness, gelling. No significant rash, bruises. No cough, SOB. No F/C/S. No GI upset. Bowels working. Energy and sleep are OK. Tolerates meds. BP listed. Wt. and appetite stable. No acute joint swelling. No significant AM stiffness, gelling. No significant rash, bruises. No cough, SOB. No F/C/S. No GI upset. Bowels working. Energy and sleep are OK. Tolerates meds. BP listed. Wt. and appetite stable. . * ROS: E nergy OK. Sleep OK . * Medical History: * Surgical History: c arpal tunnel surgery; [id number]; 2019-03-04 * Hospitalization/Major Diagno stic Procedure: * Family History: M igrated Family History: Family Notes: DM, Cancer & heart disease . * Social History: M igrated Social History: M igrated Social History: :: Seatbelt-WEARS , :: Smoke detectors-PRESENT , :: Sunscreen- wears , Marital Status :: Single , Occupation :: Retired , Substance Use :: Tobacco :: Never. * Medications: T akingVitamin B2 , Notes to Pharmacist: *Reorder from [employer] for eRx and Interaction Alerts*Terazosin HCl 5 MG Capsule take 1 capsule (5 mg) by oral route once daily at bedtime Oral 1 Cetirizine HCl 10 MG Tablet take 1 tablet (10 mg) by oral route once daily Oral 1 Folic Acid 1 MG Tablet TAKE 1 TABLET BY MOUTH ONCE DAILY Oral Magnesium 200 MG Tablet take 2 tablets by oral route daily Oral 1 Vitamin B-12 sublingual , Notes to Pharmacist: *Pick strength-form from [employer] for eRX*Turmeric 400 mg capsule take 1 capsule by oral route daily oral 1 Lutein-Zeaxanthin 25-5 mg Capsule take 1 capsule by oral route daily Oral 1 Potassium Citrate oral , Notes to Pharmacist: *Pick strength-form from [facility] for eRX*Calcium + Vitamin D3 600-5 MG-MCG Tablet daily Oral Methotrexate Sodium 2.5 MG Tablet TAKE 4 TABLETS BY MOUTH 1 TIME EVERY WEEK Oral Vitamin C 100 MG Tablet Oral Losartan Potassium 50 MG Tablet take 1 tablet (50 mg) by oral route once daily Oral 1 Simvastatin 20 MG Tablet take 1 tablet (20 mg) by oral route once daily in the evening Oral 1 Fish Oil 1000 MG Capsule Oral Vit E/ B6/A/B12 all separate pills one of each daily , Notes to Pharmacist: *Reorder from [facility] for eRx and Interaction Alerts*Taking Vitamin B2 , Notes to Pharmacist: *Reorder from [facility] for eRx and Interaction Alerts*Taking Terazosin HCl 5 MG Capsule take 1 capsule (5 mg) by oral route once daily at bedtime Oral 1 Taking Cetirizine HCl 10 MG Tablet take 1 tablet (10 mg) by oral route once daily Oral 1 Taking Folic Acid 1 MG Tablet TAKE 1 TABLET BY MOUTH ONCE DAILY Oral Taking Magnesium 200 MG Tablet take 2 tablets by oral route daily Oral 1 Taking Vitamin B-12 sublingual , Notes to Pharmacist: *Pick strength-form from [facility] for eRX*Taking Turmeric 400 mg capsule take 1 capsule by oral route daily oral 1 Taking Lutein-Zeaxanthin 25-5 mg Capsule take 1 capsule by oral route daily Oral 1 Taking Potassium Citrate oral , Notes to Pharmacist: *Pick strength-form from [facility] for eRX*Taking Calcium + Vitamin D3 600-5 MG-MCG Tablet daily Oral Taking Methotrexate Sodium 2.5 MG Tablet TAKE 4 TABLETS BY MOUTH 1 TIME EVERY WEEK Oral Taking Vitamin C 100 MG Tablet Oral Taking Losartan Potassium 50 MG Tablet take 1 tablet (50 mg) by oral route once daily Oral 1 Taking Simvastatin 20 MG Tablet take 1 tablet (20 mg) by oral route once daily in the evening Oral 1 Taking Fish Oil 1000 MG Capsule Oral Taking Vit E/ B6/A/B12 all separate pills one of each daily , Notes to Pharmacist: *Reorder from [facility] for eRx and Interaction Alerts* * Allergies: P enicillins: Allergy - Onset Date 03/04/2019Sulfa Antibiotics: Allergy - Onset Date 03/04/2019 Objective: * Vitals: B P:132/78mm Hg, HR:70/min, Temp:97.1F, Oxygen sat %:96%, Wt:181.2lbs, Wt-k.19 kg, Ht: 72 in, Ht-cm: 182.88 cm, BMI:24.57Index, Body Surface Area: 2.04. Assessment: * Assessment: 1. O ther specified rheumatoid arthritis, multiple sites - M06.89 (Primary) 2 . P ain in unspecified joint - M25.50, Src Problem: Joint Pain 3 . O ther travel ot (current) drug therapy - Z79.899 Plan: * Treatment: * Procedure Codes: * Follow Up: 3 Months * Billing Information: * Visit Code: 90901 Office Visit, Est Pt., Level 4. * Procedure Codes: * Sign off status: Completed true * Provider: Etienne Camacho MD Date: 0 08/20/2023 Generated for Mil blakely/Yamini/Nessitting on: 0 07/18/2024 02:50 PM THERAPIST SPEECH
--- OUTSIDE RECORDS SUMMARY | 2024-07-18 14:51 | XMS_ITS ---
Author Organization [facility] gerard Address [address] [facility] [place] [address] Care Team Providers Care Grain Roaster Name Role Phone Daisy ROUSE, Davi Primary Care Provider Ray Evangelista Unavailable [phone] Ray Camacho MD Unavailable Unavailabl e Allergies [...] Diff Reviewed date:12/22/2023 03:14:03 AM Interpretation: Performing Lab:[facility] , [address] [facility]. [facility] [address] Notes/Report: WBC 7.2 3.8-9.9 K/cumm Hgb 13.5 13.0-17.5 g/dL Hct 41.7 38.9-50.3 % Platelet Ct 225 150-400 K/cumm MPV 10.4 9.1-12.3 fL RBC 4.38 4.30-5.80 M/cumm MCV 95.2 81.3-96.4 fL MCH 30.8 27.1-33.3 pg MCHC 32.4 32.3-35.7 g/dL RDW CV 14.5 11.1-14.9 % RDW SD 50.0 35.7-48.1 fL NRBC Abs Auto 0.00 0.00-0.01 K/cumm Creatinine Reviewed date:12/22/2023 03:10:25 AM Interpretation: Performing Lab:[facility] , [address] [facility] [address] Notes/Report: Creatinine 0.89 0.80-1.30 mg/dL Hep Func Panel Reviewed date:12/22/2023 03:10:06 AM Interpretation: Performing Lab:[facility] , [facility] [facility] [address] Notes/Report: Total Bilirubin 0.3 0.1-1.2 mg/dL Bilirubin, Direct <0.2 0.1-0.3 mg/dL Plasma Total Protein 6.6 6.5-8.5 g/dL Albumin 4.3 3.5-5.0 g/dL Alkaline Phosphatase 74 40-130 Units/L ALT 18 7-55 Units/L AST 20 10-50 Units/L REASON FOR VISIT 4 month f/u Medications Medication SIG (Take, Route, Frequency, Duration) Notes Start Date End Date Status Fish Oil 1000 MG Oral Act walker Vit E/ B6/A/B12 all separate pills one of each daily *Reorder from [employer] for eRx and Interaction Alerts* Active Calcium + Vitamin D3 600-5 MG-MCG daily Oral Active Vitamin C 100 MG Oral Act walker Potassium Citrate oral *Pick strength -form from [employer] for eRX* Active Vitamin B2 *Reorder from [employer] for eRx and Interaction Alerts* Active Lutein-Zeaxanthin 25-5 mg take 1 capsule by oral route daily Oral 1 Active Vitamin B-12 sublingual *Pick strength-f orm from [employer] for eRX* Active Turmeric 400 mg take 1 capsule by oral route daily oral 1 Active Magnesium 200 MG take 2 tablets by oral route daily Oral 1 Active Cetirizine HCl 10 MG take 1 tablet (10 mg) by oral route once daily Oral 1 Active Methotrexate Sodium 2.5 MG TAKE 4 TABLETS BY MOUTH 1 TIME EVERY WEEK Oral 03/08/2023 Active Folic Acid 1 MG TAKE 1 TABLET BY MOUTH ONCE DAILY for 90 Active Losartan Potassium 50 MG take 1 tablet (50 mg) by oral route once daily Oral 1 Active Terazosin HCl 5 MG take 1 capsule (5 mg) by oral route once daily at bedtime Oral 1 Active Simvastatin 20 MG take 1 tablet (20 mg) by oral route once daily in the evening Oral 1 Active Vital Signs Blood pressure systolic 130 mm Hg 12/21/19 24 Blood pressure diastolic 72 mm Hg 024 Heart Rate 75 /min 12/21/2023 Height 72 in 12/21/2023 Weight 183 lbs 12/21/2023 BMI 24.82 kg/m2 12/21/2023 Oximetry 94 % 12/21/2023 Encounters Encounter Location Date Provider Diagnosis [facility] [address] [facility] [address] [place] [address] 12/21/2023 Ray Camacho Pain in unspecified joint M25.50 ; Other specified rheumatoid arthritis, multiple sites M06.89 and Other half-way (current) drug therapy Z79.899 Assessments Encounter Date Diagnosis (ICD Code) Assessment Notes Treatment Notes Treatment Clinical Notes Section Notes 12/21/2023 Pain in unspecified joint (ICD-10 - M25.50) 12/21/2023 Other specified rheumatoid arthritis, multiple sites (ICD-10 - M06.89) 12/21/2023 Other watermaster (current) drug therapy (ICD-10 - Z79.899) Plan Of Treatment Next Appt Details Follow Up: 3 Months, Reason: Progress Notes * Yves TATEDOB:1945 ( 78 yo M)Acc No.[id number]:12/21/2023 Progress Notes Patient: Yves NAYLOR Provider: Etienne Camacho MD :1945 A ge:78 Y S ex:Male Date:12/21/2023 Address:[address] [place] [address] Pcp:Davi Villa MD Subjective: * Chief Complaints: * 4 month f/u * HPI: A dvance Care Planning: No [...] * Surgical History: c arpal tunnel surgery; [id number] Surgery; 2019-03-04 * Hospitalization/Major Diagno stic Procedure: * Family History: M igrated Family History: Family Notes: DM, Cancer & heart disease . * Social History: M igrated Social History: M igrated Social History: :: Seatbelt-WEARS , :: Smoke detectors-PRESENT , :: Sunscreen- wears , Marital Status :: Single , Occupation :: Retired , Substance Use :: Tobacco :: Never. * Medications: T akingSimvastatin 20 MG Tablet take 1 tablet (20 mg) by oral route once daily in the evening Oral 1 Losartan Potassium 50 MG Tablet take 1 tablet (50 mg) by oral route once daily Oral 1 Terazosin HCl 5 MG Capsule take 1 capsule (5 mg) by oral route once daily at bedtime Oral 1 Methotrexate Sodium 2.5 MG Tablet TAKE 4 TABLETS BY MOUTH 1 TIME EVERY WEEK Oral Folic Acid 1 MG Tablet TAKE 1 TABLET BY MOUTH ONCE DAILY Cetirizine HCl 10 MG Tablet take 1 tablet (10 mg) by oral route once daily Oral 1 Vitamin B2 , Notes to Pharmacist: *Reorder from [employer] for eRx and Interaction Alerts*Magnesium 200 MG Tablet take 2 tablets by oral route daily Oral 1 Vitamin B-12 sublingual , Notes to Pharmacist: *Pick strength-form from [employer] for eRX*Turmeric 400 mg capsule take 1 capsule by oral route daily oral 1 Lutein-Zeaxanthin 25-5 mg Capsule take 1 capsule by oral route daily Oral 1 Potassium Citrate oral , Notes to Pharmacist: *Pick strength-form from [employer] for eRX*Calcium + Vitamin D3 600-5 MG-MCG Tablet daily Oral Vitamin C 100 MG Tablet Oral Fish Oil 1000 MG Capsule Oral Vit E/ B6/A/B12 all separate pills one of each daily , Notes to Pharmacist: *Reorder from [employer] for eRx and Interaction Alerts*Medication List reviewed and reconciled with the patientTaking Simvastatin 20 MG Tablet take 1 tablet (20 mg) by oral route once daily in the evening Oral 1 Taking Losartan Potassium 50 MG Tablet take 1 tablet (50 mg) by oral route once daily Oral 1 Taking Terazosin HCl 5 MG Capsule take 1 capsule (5 mg) by oral route once daily at bedtime Oral 1 Taking Methotrexate Sodium 2.5 MG Tablet TAKE 4 TABLETS BY MOUTH 1 TIME EVERY WEEK Oral Taking Folic Acid 1 MG Tablet TAKE 1 TABLET BY MOUTH ONCE DAILY Taking Cetirizine HCl 10 MG Tablet take 1 tablet (10 mg) by oral route once daily Oral 1 Taking Vitamin B2 , Notes to Pharmacist: *Reorder from [employer] for eRx and Interaction Alerts*Taking Magnesium 200 MG Tablet take 2 tablets by oral route daily Oral 1 Taking Vitamin B-12 sublingual , Notes to Pharmacist: *Pick strength-form from [employer] for eRX*Taking Turmeric 400 mg capsule take 1 capsule by oral route daily oral 1 Taking Lutein-Zeaxanthin 25-5 mg Capsule take 1 capsule by oral route daily Oral 1 Taking Potassium Citrate oral , Notes to Pharmacist: *Pick strength-form from [employer] for eRX*Taking Calcium + Vitamin D3 600-5 MG-MCG Tablet daily Oral Taking Vitamin C 100 MG Tablet Oral Taking Fish Oil 1000 MG Capsule Oral Taking Vit E/ B6/A/B12 all separate pills one of each daily , Notes to Pharmacist: *Reorder from [employer] for eRx and Interaction Alerts*Medication List reviewed and reconciled with the patient * Allergies: P enicillins: Allergy - Onset Date 03/04/2019Sulfa Antibiotics: Allergy - Onset Date 03/04/2019 Objective: * Vitals: B P:130/72mm Hg, HR:75/min, Oxygen sat %:94%, Wt:183lbs, Ht:72in, BMI:24.82Index. * Examination: G eneral Examination: P hysical Examination Constitutional Appearance : well nourished, alert, in no acute distress Head and Face/Head : NC/AT Inspection : normocephalic, atraumatic Eyes/Conjunctivae : conjunctiva normal Sclerae : sclera white Psychiatric/Judgment and Insight : judgment and insight intact Mood and Affect : mood normal, affect appropriate Cervical Spine: normal curvatures Right Upper Extremity Hand : NS Left Upper Extremity Hand : NS Gait: gait normal . Assessment: * Assessment: 1. O ther specified rheumatoid arthritis, multiple sites - M06.89 (Primary) 2 . P ain in unspecified joint - M25.50, Src Problem: Joint Pain 3 . O ther half-way (current) drug therapy - Z79.899 Plan: * Treatment: 2. P ain in unspecified joint L AB: Creatinine L AB: Hep Func Panel L AB: CBC without Diff 3. O ther watermaster (current) drug therapy L AB: CBC without Diff L AB: Creatinine L AB: Hep Func Panel * Procedure Codes: * Follow Up: 3 Months * Billing Information: * Visit Code: 70884 Office Visit, Est Pt., Level 4. * Procedure Codes: * Sign off status: Completed true * Provider: Etienne Camacho MD Date: 0 12/21/2023 Generated for Mil blakely/Yamini/Nolvia on: 0 07/18/2024 02:51 PM MEAT MOLDER History and Physical Notes * Examination Category Sub-Category Detail Notes Category Not es General Examination Physical Examination Constitutional Appearance : well nourished, alert, in no acute distress Head and Face/Head : NC/AT Inspection : normocephalic, atraumatic Eyes/Conjunctivae : conjunctiva normal Sclerae : sclera white Psychiatric/Judgment and Insight : judgment and insight intact Mood and Affect : mood normal, affect appropriate Cervical Spine: normal curvatures Right Upper Extremity Hand : NS Left Upper Extremity Hand : NS Gait: gait normal
--- OUTSIDE RECORDS SUMMARY | 2024-07-18 14:51 | XMS_ITS ---
Author Organization [facility] gerard Address [address] [facility] [address] [place] [address] Care Team Providers Care Hoisting Laborer Name Role Phone Daisy ROUSE, Davi Primary Care Provider Ray Evangelista Unavailable [phone] Reji ROUSE, Ray Unavailable Unavailabl e REASON FOR VISIT 4 month f/u Encounters Encounter Location Date Provider Diagnosis [facility] [address] [facility] [address] [place] [address] 04/22/2024 Ray Camacho Plan Of Treatment No Information Progress Notes * Yves TATEDOB:1945 ( 78 yo M)Acc No.[id number]:04/22/2024 Progress Notes Patient: Yves NAYLOR Provider: Etienne Camacho MD :1945 A ge:78 Y S ex:Male Date:04/22/2024 Address:[address] [place] [address] Pcp:Davi Villa MD Subjective: * Chief Complaints: * 1 . 4 month f/u. * Medical History: Objective: * Vitals: Assessment: Plan: * Treatment: * Billing Information: * Visit Code: * Procedure Codes: * Electronic signature of Johny Camacho MD on 07/18/2024 at 02:51 PM HARPSICHORD MAKER Sign off status: Pending * Provider: Etienne Camacho MD Date: 1 06/22/2023 Generated for Printi ng/Yamini/eTransmitting on: 0 07/18/2024 02:51 PM HARPSICHORD MAKER
--- OUTSIDE RECORDS SUMMARY | 2024-07-18 14:51 | XMS_ITS | Encounter Summary ---
Author Organization [facility] Address [address] [place] [address] Care Team Providers Care Weld Technician Name Role Phone Yves Martinez MD Primary Care Provider [phone] Davi Villa MD Primary Care Provider Reason for Referral * Diagnostic Imaging (Routine) - Closed Specialty Diagnoses / Procedures Referred By Contac t Referred To Contact Radiology Diagnoses Ataxia Dizziness Frequent headaches Procedures MRI Brain WO Contrast MRI Brain B01A WO Contrast Yves Martinez MD Phone: tel: fax: [address] [address] Referral ID Status Reason Start Date Expiration Date Visits Re quested Visits Authorized [id number] Closed 01/15/2018 07/27/2019 1 1 Encounter Details Date Type Department Care Team (Late st Contact Info) Description 01/15/2018 Community Orders [facility] EpicCare Link Yves Martinez MD [address] [address] Ataxia (Primary Dx); Dizziness; Frequent headaches Social History Tobacco Use Types Packs/Day Years Used Date Smoking Tobacco: Never Sex and Gender Information Value Date Recorded Sex Assigned at Not on file Legal Sex Male 7:50 PM CLIMATOLOGIST Gender Identity Male 05/09/2021 7:32 PM CLIMATOLOGIST Sexual Orientation Not on file documented as of this encounter Plan of Treatment Scheduled Procedures Name Priority Associated Diagnoses Date/Ti va COLONOSCOPY Colon cancer screening documented as of this encounter Results * MRI Brain WO Contrast (01/22/2018 6:37 PM CDT) Anatomical Region Laterality Modality Head and Neck N/A Magnetic Resonan ce 01/23/2018 10:4 3 AM CDT Impressions 01/23/2018 4:42 PM CDT 1. No acute intracranial abnormalities. Mild underlying microangiopathy. 2. Right sided middle ear effusion. Electronically signed by: Gerry Jefferson M.D. Narrative 01/23/2018 4:42 PM CDT EXAMINATION: Magnetic resonance imaging (MRI) of the brain and brainstem without contrast HISTORY: Ataxia. Dizziness. Frequent headaches. TECHNIQUE: Multiplanar multi-weighted MRI of the brain and brainstem was performed without intravenous contrast using the general brain protocol. COMPARISON: Head CT from 04/16/2016. FINDINGS: Diffusion weighted images reveal no hyperintensities to suggest acute cerebral infarction. The susceptibility weighted sequences reveal no evidence of acute or chronic hemorrhage. The ventricles are normal in size and position without evidence of hydrocephalus. Scattered periventricular and deep white matter T2 hyperintensities consistent with mild underlying microangiopathy. The corpus callosum is normal in shape and signal intensity. The posterior fossa is normal. The pituitary and sella are normal. The brainstem and craniocervical junction are normal. The superior sagittal sinus demonstrates normal venous flow. Normal flow voids are demonstrated in the carotid and basilar arteries. The scalp and calvarium are normal. The mastoids air cells are underdeveloped bilaterally. There is a right-sided middle ear effusion. Trace bilateral mastoid effusions. Mild mucosal thickening of the visualized paranasal sinuses. The orbits are normal. Procedure Note Gerry Jefferson MD PhD - 01/23/2018 EXAMINATION: Magnetic resonance imaging (MRI) of the brain and brainstem without contrast HISTORY: Ataxia. Dizziness. Frequent headaches. TECHNIQUE: Multiplanar multi-weighted MRI of the brain and brainstem was performed without intravenous contrast using the general brain protocol. COMPARISON: Head CT from 04/16/2016. FINDINGS: Diffusion weighted images reveal no hyperintensities to suggest acute cerebral infarction. The susceptibility weighted sequences reveal no evidence of acute or chronic hemorrhage. The ventricles are normal in size and position without evidence of hydrocephalus. Scattered periventricular and deep white matter T2 hyperintensities consistent with mild underlying microangiopathy. The corpus callosum is normal in shape and signal intensity. The posterior fossa is normal. The pituitary and sella are normal. The brainstem and craniocervical junction are normal. The superior sagittal sinus demonstrates normal venous flow. Normal flow voids are demonstrated in the carotid and basilar arteries. The scalp and calvarium are normal. The mastoids air cells are underdeveloped bilaterally. There is a right-sided middle ear effusion. Trace bilateral mastoid effusions. Mild mucosal thickening of the visualized paranasal sinuses. The orbits are normal. IMPRESSION: 1. No acute intracranial abnormalities. Mild underlying microangiopathy. 2. Right sided middle ear effusion. Electronically signed by: Gerry Jefferson M.D. Yves Martinez MD IMG MRI PROCEDURES Final Resul t documented in this encounter Visit Diagnoses Diagnosis Ataxia- Primary Lack of coordination Dizziness Dizziness and giddiness Frequent headaches Ataxia Lack of coordination Dizziness Dizziness and giddiness Frequent headaches documented in this encounter Care Teams Weld Technician Relationship Specialty Start Date End Date Yves Martinez MD [address] [address] PCP - General 10/03/16 03/28/21 Davi Villa MD [address] [address] PCP - General Endocrinology Diabetes & Metabolism 03/29/21 documented as of this encounter
== END 2024-07-18 14:34 | disposition home or self-care (01) ==
PROVIDERS: Visit Provider Internal Medicine
DX: M05.70 Rheumatoid arthritis with rheumatoid factor of unspecified site without organ or systems involvement (principal)
CPT/HCPCS: 73218